=== PATIENT | female | born 1995 | race Caucasian/White ===

== ENCOUNTER → 2017-08-03 | Outpatient (CLI) | payer OTHER ==
[2017-08-03 19:53] LABS: HCG, SERUM QUANTITATIVE 40 MIU/ML
== END ==
LOC: M SMT 14:32
DX: N91.2 Amenorrhea, unspecified (principal)
CPT/HCPCS: 84702

== ENCOUNTER → 2017-09-08 | Outpatient (CLI) | payer OTHER ==
[2017-09-08 13:19] LABS: TESTOSTERONE 47 NG/DL (14-76)
[2017-09-08 13:20] LABS: FOLLICLE STIMULATING HORMONE 8.5 mIU/mL; LUTEINIZING HORMONE 19.8 mIU/mL
[2017-09-08 13:25] LABS: GLUCOSE,RANDOM 95 MG/DL (LESS THAN 200)
[2017-09-08 13:25] LABS: THYROID STIMULATING HORMONE 0.753 uIU/ML (0.358-3.740)
[2017-09-08 14:22] LABS: CONTROL LINE HCG INT CTR LINE PRESENT; HCG, SERUM QUALITATIVE NEGATIVE (NEGATIVE)
[2017-09-12 00:06] LABS: 17 HYDROXY PROGESTERONE 34 ng/dL (.); ANTI THROMBIN 3 ANTIGEN IMMUNO 92 % (72-124); ANTI THROMBIN 3 FUNCT ACTIVITY 96 % (75-135); ANTIPHOSPHATIDYLSERINE IgA 1 APS IgA (0-20); ANTIPHOSPHATIDYLSERINE IgG 3 GPS IgG (0-11); ANTIPHOSPHATIDYLSERINE IgM 30 MPS IgM (0-25); DEHYDROEPIANDROSTERONE SULFATE 217.6 ug/dL (110.0-431.7); INSULIN FREE 65 uU/mL (.); INSULIN TOTAL2 67 uU/mL (.); PROTEIN C FUNCTIONAL ACTIVITY 121 % (73-180); PROTEIN S ANTIGEN FREE 61 % (57-157); PROTEIN S ANTIGEN TOTAL 86 % (60-150)
[2017-09-14 10:06] LABS: DRVV SCREEN 39.2 SEC
[2017-09-14 10:12] LABS: PTT LUPUS TYPE ANTICOAG SCREEN 0.9 (0-1.2)
== END ==
LOC: M LAB 11:34
DX: N92.6 Irregular menstruation, unspecified (principal); N96 Recurrent pregnancy loss
CPT/HCPCS: 83001

== ENCOUNTER → 2017-10-30 | Outpatient (REF) | payer OTHER | LOC: M SFHCLERA 09:37 | DX: J02.9 Acute pharyngitis, unspecified (principal) ==

== ENCOUNTER → 2017-11-17 | Outpatient (CLI) | payer OTHER ==
[2017-11-17 13:15] LABS: BASO % 0.4 % (0.0-1.0); EOS # 0.1 10^3/uL (0.0-0.50); EOS % 0.9 % (0.0-3.0); HEMATOCRIT 36.3 % (36.0-47.0); HEMOGLOBIN 12.6 g/dl (12.0-15.5); IMMATURE GRANULOCYTE % 0.3 % (0-3.0); LYMPH # 2.4 10^3/uL (1.5-6.5); LYMPH % 23.7 % (24.0-44.0); MEAN CORPUSCULAR HEMOGLOBIN 31.5 pg (27.0-33.0); MEAN CORPUSCULAR HGB CONC 34.7 g/dl (32.0-36.5); MEAN CORPUSCULAR VOLUME 90.8 fl (80.0-96.0); MONO # 0.7 10^3/uL (0.0-0.8); MONO % 7.2 % (0.0-5.0); NEUTROPHILS # 6.8 10^3/uL (1.8-7.7); NEUTROPHILS % 67.5 % (36.0-66.0); PLATELET COUNT, AUTOMATED 288 10^3/uL (150-450); RED CELL DISTRIBUTION WIDTH 11.3 % (11.5-14.5)
[2017-11-17 15:01] LABS: CHLAMYDIA DNA AMPLIFICATION NEGATIVE (NEGATIVE); GC DNA AMPLIFICATION NEGATIVE (NEGATIVE)
[2017-11-17 15:22] LABS: HBsAg Prenatal NEGATIVE (NEGATIVE); HIV 1&2 SCREEN CENTAUR NEGATIVE (NEGATIVE); RUBELLA IgG QUALITATIVE IMMUNE (IMMUNE)
[2017-11-17 15:22] LABS: HEPATITIS C VIRUS ABY INDEX < 0.0 INDEX (<0.8)
== END ==
LOC: M SMT 11:37
DX: Z34.81 Encounter for supervision of other normal pregnancy, first trimester (principal); Z36.89 Encounter for other specified antenatal screening; Z3A.10 10 weeks gestation of pregnancy

== ENCOUNTER 2017-12-09 21:01 | Emergency (ER) | payer OTHER ==
[2017-12-09 22:53] LABS: INFLUENZA A AMPLIFICATION NEGATIVE (NEGATIVE); INFLUENZA B AMPLIFICATION NEGATIVE (NEGATIVE)
[2017-12-10] MEDS: NS 1,000 ML IV (00:35)
[2017-12-10 00:47] LABS: BASO % 0.3 % (0.0-1.0); EOS # 0.2 10^3/uL (0.0-0.50); EOS % 1.6 % (0.0-3.0); HEMOGLOBIN 12.3 g/dl (12.0-15.5); IMMATURE GRANULOCYTE % 0.3 % (0-3.0); LYMPH # 3.4 10^3/uL (1.5-6.5); LYMPH % 31.4 % (24.0-44.0); MEAN CORPUSCULAR HEMOGLOBIN 31.5 pg (27.0-33.0); MEAN CORPUSCULAR HGB CONC 35.1 g/dl (32.0-36.5); MEAN CORPUSCULAR VOLUME 89.5 fl (80.0-96.0); MONO # 0.6 10^3/uL (0.0-0.8); MONO % 5.8 % (0.0-5.0); NEUTROPHILS # 6.6 10^3/uL (1.8-7.7); NEUTROPHILS % 60.6 % (36.0-66.0); PLATELET COUNT, AUTOMATED 278 10^3/uL (150-450); RED BLOOD COUNT 3.91 10^6/uL (4.00-5.40); RED CELL DISTRIBUTION WIDTH 11.5 % (11.5-14.5); WHITE BLOOD COUNT 10.9 10^3/uL (4.0-10.0)
[2017-12-10 01:40] LABS: KETONE, URINE AUTO RFX NEGATIVE (NEGATIVE); LEUKOCYTE ESTERASE UR AUTO RFX NEGATIVE (NEGATIVE); NITRITE, URINE AUTO RFX NEGATIVE (NEGATIVE); RBC, URINE AUTO RFX 1 /HPF (0-3); SPECIFIC GRAVITY UR AUTO RFX 1.002 (1.002-1.035); SQUAM EPITHELIAL CELL UR AURFX 0 /HPF (0-6); WBC, URINE AUTO RFX 0 /HPF (0-3)
[2017-12-10 02:04] LABS: ANION GAP 11 MEQ/L (8-16); BLOOD UREA NITROGEN 7 MG/DL (7-18); CALCIUM LEVEL 8.2 MG/DL (8.5-10.1); CARBON DIOXIDE LEVEL 20 MEQ/L (21-32); CHLORIDE LEVEL 109 MEQ/L (98-107); CREATININE FOR GFR 0.53 MG/DL (0.55-1.30); GLOMERULAR FILTRATION RATE > 60.0 (>60); GLUCOSE, FASTING 83 MG/DL (70-100); POTASSIUM SERUM 4.2 MEQ/L (3.5-5.1); SODIUM LEVEL 140 MEQ/L (136-145)
== END 2017-12-10 02:27 | disposition home or self-care (01) ==
LOC: M ED 21:01
DX: O21.9 Vomiting of pregnancy, unspecified (principal); E86.0 Dehydration
CPT/HCPCS: 80048

== ENCOUNTER → 2017-12-14 | Outpatient (CLI) | payer OTHER | LOC: M SMT 11:32 | DX: Z34.81 Encounter for supervision of other normal pregnancy, first trimester (principal); Z36.8A Encounter for antenatal screening for other genetic defects ==

== ENCOUNTER → 2018-01-13 | Outpatient (CLI) | payer OTHER | LOC: M RAD 10:48 | DX: O32.1XX0 Maternal care for breech presentation, not applicable or unspecified (principal); Z3A.18 18 weeks gestation of pregnancy | CPT/HCPCS: 76811 ==

== ENCOUNTER → 2018-02-11 | Outpatient (CLI) | payer OTHER ==
--- NOTE | 2018-02-11 16:48 | REP ---
REASON: anatomy followup. Prior examination obtained 01/13/2018 did not optimally visualize the facial features, right ventricular outflow tract, and spine. Additionally, the left sided choroid plexus cyst was noted. This examination was performed in followup. Multiple ultrasonographic images of the gravid uterus show a single living intrauterine gestation in the footling breech presentation. Doppler interrogation of the heart shows a heart rate of 157 beats per minute. The placenta is posterior and not low lying. The subjective aminotic fluid volume is within normal limits. The cervix measures 4.6 cm in length and it is closed. Evaluation of the maternal adnexal spaces showed no abnormalities. BPD 5.4 cm = 22 weeks 3 days HC 20.5 cm = 22 weeks 4 days AC 17.9 cm = 22 weeks 5 days FL 4.0 cm = 22 weeks 6 days Estimated weight is 531 grams which is at the 56th percentile for a 22 week 3 day gestational age. The aforementioned features which were not seen on the prior exam were well seen today and are normal. Additionally, the choroid plexus cyst seen previously has resolved. IMPRESSION: Single living intrauterine gestation as described above with an estimated gestational age of 22 weeks 2 days via composite criteria and an estimated date of delivery of 06/15/2018 by today's exam. No anomalies were detected. Electronically Signed by John Staples DO 02/11/2018 04:58 P
== END ==
LOC: M SMT 11:03
PROVIDERS: ATTEND Advanced Practice Midwife
DX: Z34.82 Encounter for supervision of other normal pregnancy, second trimester (principal); Z3A.22 22 weeks gestation of pregnancy

== ENCOUNTER → 2018-02-24 | Outpatient (CLI) | payer OTHER ==
--- NOTE | 2018-02-25 05:39 | REP ---
Clinical: Left flank pain. Technique: Real time garcia scale ultrasound examination using curved array transducer. Findings: Bilateral kidneys are normal in contour, size, echogenicity, and reniform shape without hydronephrosis, nephrolithiasis, cystic or renal mass lesion. No perinephric fluid collection. Right kidney measures 11.5 x 6.2 x 4.4 cm. Left kidney measures 12.1 x 6.6 x 5.2 cm. Bladder is empty. Fetus in breech presentation noted (FHR 150 beats per minute). Impression: Normal bilateral kidneys. No hydronephrosis or obvious nephrolithiasis. Electronically Signed by Claudio Martinez MD 02/25/2018 05:30 A
== END ==
LOC: M RAD 10:13
PROVIDERS: ATTEND Advanced Practice Midwife
DX: M54.5 Low back pain (principal)

== ENCOUNTER → 2018-03-02 | Outpatient (REF) | payer OTHER ==
[~2018-03-02] MED LIST: OMEP20CA3 PO; PRENTAB9 PO; PROZ10CA7 PO
== END ==
LOC: M LAB REF 13:30
PROVIDERS: ATTEND Advanced Practice Midwife
DX: Z34.82 Encounter for supervision of other normal pregnancy, second trimester (principal)

== ENCOUNTER → 2018-03-10 | Outpatient (CLI) | payer OTHER ==
[2018-03-10 13:06] LABS: HEMOGLOBIN 11.8 g/dl (12.0-15.5); MEAN CORPUSCULAR HEMOGLOBIN 31.4 pg (27.0-33.0); MEAN CORPUSCULAR HGB CONC 33.7 g/dl (32.0-36.5); MEAN CORPUSCULAR VOLUME 93.1 fl (80.0-96.0); PLATELET COUNT, AUTOMATED 275 10^3/uL (150-450); RED BLOOD COUNT 3.76 10^6/uL (4.00-5.40); WHITE BLOOD COUNT 9.9 10^3/uL (4.0-10.0)
== END ==
LOC: M SMT 10:31
PROVIDERS: ATTEND Obstetrics & Gynecology
DX: Z34.82 Encounter for supervision of other normal pregnancy, second trimester (principal)

== ENCOUNTER 2018-04-07 13:29 | Outpatient (CLI) | payer OTHER ==
[~2018-04-07] VITALS: Ht 170.2 cm; Wt 107.7 kg
[2018-04-07 13:46] VITALS: BP 126/63
[2018-04-07] MEDS ORDERED: OMEP20CA3 PO (13:52)
[2018-04-07] MEDS ORDERED: PRENTAB9 PO (13:52)
[2018-04-07] MEDS ORDERED: PROZ10CA7 PO (13:52)
[2018-04-07] MEDS ORDERED: LR 1,000 ML IV SCH (14:03)
[2018-04-07] MEDS ORDERED: LACTATED RINGER'S 1000 ML IV STA (14:03)
[2018-04-07 14:28] LABS: HEMATOCRIT 31.9 % (36.0-47.0); HEMOGLOBIN 11.1 g/dl (12.0-15.5); MEAN CORPUSCULAR HEMOGLOBIN 30.7 pg (27.0-33.0); MEAN CORPUSCULAR HGB CONC 34.8 g/dl (32.0-36.5); MEAN CORPUSCULAR VOLUME 88.4 fl (80.0-96.0); PLATELET COUNT, AUTOMATED 254 10^3/uL (150-450); RED BLOOD COUNT 3.61 10^6/uL (4.00-5.40); WHITE BLOOD COUNT 9.8 10^3/uL (4.0-10.0)
[2018-04-07 15:04] VITALS: BP 116/63
[2018-04-07 15:04] LABS: ALBUMIN 2.6 GM/DL (3.2-5.2); ALT/SGPT 14 U/L (12-78); BILIRUBIN,TOTAL 0.3 MG/DL (0.2-1.0); BLOOD UREA NITROGEN 7 MG/DL (7-18); CALCIUM LEVEL 8.4 MG/DL (8.5-10.1); CARBON DIOXIDE LEVEL 22 MEQ/L (21-32); CHLORIDE LEVEL 108 MEQ/L (98-107); CREATININE FOR GFR 0.51 MG/DL (0.55-1.30); GLOMERULAR FILTRATION RATE > 60.0 (>60); GLUCOSE, FASTING 93 MG/DL (70-100); POTASSIUM SERUM 3.6 MEQ/L (3.5-5.1); SODIUM LEVEL 138 MEQ/L (136-145); TOTAL PROTEIN 6.4 GM/DL (6.4-8.2)
--- NOTE | 2018-04-07 15:11 | REP ---
Clinical: 30 weeks with right upper quadrant pain. Technique: Cochran scale ultrasound using curved array transducer. Findings: The liver and pancreas are normal in contour, size, and pancreatic echogenicity without focal hepatic or pancreatic lesions identified. Mild fatty infiltration to the liver cannot be excluded. The gallbladder is normal without gallstones, wall thickening or pericholecystic fluid. No biliary ductal dilatation is appreciated, and the common bile duct measures 3.1 mm diameter. The right kidney measures 11.4 x 5.0 x 4.8 cm and demonstrates mild hydronephrosis which may be induced. Impression: 1. Mild right hydronephrosis likely secondary to . 2. Mild fatty infiltration to the liver cannot be excluded. Electronically Signed by Claudio Martinez MD 04/07/2018 03:03 P
== END 2018-04-07 16:41 | disposition home or self-care (01) ==
LOC: M LDO 13:29
PROVIDERS: ATTEND Specialist
DX: O47.03 False labor before 37 completed weeks of gestation, third trimester (principal); Z3A.30 30 weeks gestation of pregnancy; O26.893 Other specified pregnancy related conditions, third trimester
CPT/HCPCS: 59025; 76705; 80053; 85027; G0378; G0463

== ENCOUNTER → 2018-04-27 | Outpatient (REF) | payer OTHER | LOC: M LAB REF 15:47 | PROVIDERS: ATTEND Advanced Practice Midwife | DX: R19.7 Diarrhea, unspecified (principal) ==

== ENCOUNTER → 2018-05-18 | Outpatient (REF) | payer OTHER | LOC: M LAB REF 17:18 | PROVIDERS: ATTEND Obstetrics & Gynecology | DX: Z34.83 Encounter for supervision of other normal pregnancy, third trimester (principal) ==

== ENCOUNTER 2018-06-07 16:28 | Inpatient (IN) | payer OTHER ==
[~2018-06-07] VITALS: Ht 170.2 cm; Wt 112.0 kg
[2018-06-07 16:51] VITALS: BP 167/93
[2018-06-07] MEDS ORDERED: LR 1,000 ML IV SCH (17:40)
[2018-06-07] MEDS ORDERED: LACTATED RINGER'S 1000 ML IV STA (17:40)
[2018-06-07 18:07] VITALS: BP 123/67
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
[2018-06-07 18:41] LABS: HEMATOCRIT 32.2 % (36.0-47.0); HEMOGLOBIN 10.9 g/dl (12.0-15.5); MEAN CORPUSCULAR HEMOGLOBIN 29.6 pg (27.0-33.0); MEAN CORPUSCULAR HGB CONC 33.9 g/dl (32.0-36.5); MEAN CORPUSCULAR VOLUME 87.5 fl (80.0-96.0); PLATELET COUNT, AUTOMATED 264 10^3/uL (150-450); RED BLOOD COUNT 3.68 10^6/uL (4.00-5.40); WHITE BLOOD COUNT 11.6 10^3/uL (4.0-10.0)
[2018-06-07] MEDS ORDERED: EVEN500C3 PO (19:19)
[2018-06-07] MEDS ORDERED: ZOLO25TA PO (19:21)
[2018-06-07] MEDS: miSOPROStol 50 MCG 1/2 TAB (S0191) SL SCH ×2 (19:25→23:19)
[2018-06-07 21:54] VITALS: BP 110/60
[2018-06-08] VITALS (36 sets, daily range): BP systolic 97–159; BP diastolic 55–89
[2018-06-08] MEDS ORDERED: PROMETHAZINE INJ 25 MG/ML VIAL (J2550) IV ONE (01:45)
[2018-06-08] MEDS ORDERED: BUTORPHANOL 2 MG/ML INJ (J0595) IV ONE (01:45)
[2018-06-08] MEDS: miSOPROStol 50 MCG 1/2 TAB (S0191) SL SCH (03:32)
[2018-06-08] MEDS ORDERED: SERTRALINE HCL 25 MG TABLET PO SCH (09:00)
[2018-06-08] MEDS ORDERED: LR 1,000 ML IV SCH ×3 (09:45→18:30)
[2018-06-08] MEDS ORDERED: OXYTOCIN DRIP 30 UNITS in APPROPRIATE DILUENT 1 EA IV SCH ×2 (09:45→18:30)
[2018-06-08] MEDS ORDERED: LACTATED RINGER'S 1000 ML IV ONE (14:00)
[2018-06-08] MEDS ORDERED: fentaNYL 100 MCG/2 ML INJECTION (J3010) As Ordered ONE ×3 (14:35→19:42)
[2018-06-08] MEDS ORDERED: FENTANYL 2MCG/ML ROPIVACAINE 0.2% IN 0.9% NACL 100ML IVBAG As Ordered ONE (14:36)
[2018-06-08] MEDS ORDERED: LACTATED RINGER'S 1000 ML IV PRN (15:30)
[2018-06-08] MEDS ORDERED: EPIDURAL/PCA KEYS XX PRN (15:30)
[2018-06-08] MEDS ORDERED: REFRIGERATOR IV KEYS XX PRN (15:30)
[2018-06-08] MEDS ORDERED: FENTANYL/ROPIVACAINE/NACL BAG 100 ML EPIDURAL SCH (15:30)
[2018-06-08] MEDS ORDERED: EPIDURAL COMMENT XX SCH (15:30)
[2018-06-08] MEDS ORDERED: ONDANSETRON 4MG/2ML VIAL (J2405) IV PRN ×4 (15:30→19:29)
[2018-06-08] MEDS ORDERED: diphenhydrAMINE INJ 50MG/ML VIAL (J1200) IV PRN ×2 (15:30→19:29)
[2018-06-08] MEDS ORDERED: ePHEDrine SULFATE 25 MG/5 ML(5MG/ML) SYRINGE IV PRN (15:30)
[2018-06-08] MEDS ORDERED: NALOXONE INJ 0.4 MG/1 ML VIAL (J2310) IV PRN ×3 (15:30→19:29)
[2018-06-08] MEDS ORDERED: BICITRA 30ML SOLN UDC As Ordered ONE (16:15)
[2018-06-08] MEDS ORDERED: ceFAZolin 2 GM/D5W 50 ML IV BAG (J0690 PER 500MG) As Ordered ONE (16:16)
[2018-06-08] MEDS ORDERED: BICITRA 30ML SOLN UDC PO ONE (16:30)
[2018-06-08] MEDS ORDERED: LIDOCAINE 2% W/EPIN INJ 20ML **PRES FREE As Ordered ONE (16:45)
[2018-06-08] MEDS ORDERED: SODIUM BICARBONATE 8.4% INJ 50 ML SYRINGE As Ordered ONE (16:48)
[2018-06-08] MEDS ORDERED: OXYTOCIN INJ 10 UNITS/ML VIAL (J2590) As Ordered ONE (17:29)
[2018-06-08] MEDS ORDERED: MORPHINE PRES-FREE INJ 10 MG/10 ML VIAL (J2274) As Ordered ONE (17:31)
[2018-06-08] MEDS ORDERED: KETOROLAC 60 MG/2 ML VIAL (J1885) As Ordered ONE (17:34)
[2018-06-08] MEDS ORDERED: ONDANSETRON 4MG/2ML VIAL (J2405) As Ordered ONE ×2 (17:34→18:27)
[2018-06-08 17:36] LABS: CORD GAS ABE V -1.5; CORD GAS HCO3 V 24.3 MEQ/L; CORD GAS O2 SAT V 82.7 %; CORD GAS PH V 7.351 UNITS; CORD GAS PO2 V 35.4 mmHg; CORD GAS SBC V 22.8 MEQ/L; CORD GAS TCO2 V 25.7 MEQ/L
[2018-06-08 17:38] LABS: CORD GAS ABE A -1.2; CORD GAS O2 SAT A 42.8 %; CORD GAS PCO2 A 53.1 mmHg; CORD GAS PH A 7.308 UNITS; CORD GAS PO2 A 16.9 mmHg; CORD GAS SBC A 22.1 MEQ/L; CORD GAS TCO2 A 27.6 MEQ/L
[2018-06-08] MEDS ORDERED: OXYTOCIN 30 UNITS IN 0.9% NaCl 500ML IV BAG (J2590) As Ordered ONE (17:58)
[2018-06-08] MEDS ORDERED: RHOGAM 300 MCG (1500 IU) INJ (J2790) IM SCH (18:15)
[2018-06-08] MEDS ORDERED: MEASLES,MUMPS,RUBELLA VACCINE INJ (MMR-II) (90707) SC SCH (18:15)
[2018-06-08] MEDS ORDERED: MOM 30ML SUSPENSION UDC PO PRN (18:15)
[2018-06-08] MEDS ORDERED: PERCOCET 5MG/325MG TAB PO PRN (18:30)
[2018-06-08] MEDS ORDERED: METOCLOPRAMIDE INJ 10MG/2ML VIAL (J2765) IV PRN ×2 (18:30→19:29)
[2018-06-08] MEDS: fentaNYL 100 MCG/2 ML INJECTION (J3010) IV PRN ×3 (19:02→19:45)
--- NOTE | 2018-06-08 19:07 | RO ---
DATE OF PROCEDURE: 06/08/2018 PREOPERATIVE DIAGNOSIS: Inability to augment labor removed from delivery. POSTOPERATIVE DIAGNOSIS: Inability to augment labor removed from delivery. PROCEDURE PERFORMED: Primary lower transverse section. SURGEON: Dr. Rain Willis. RN DOCUMENT IMPROVEMENT SPECIALIST: Thao Silver CNM ANESTHESIA: Epidural ESTIMATED BLOOD LOSS: 500 mL. IV FLUIDS: 650 mL lactated Ringer's solution. Urine output was 125 mL. SPECIMENS: Cord gases 7.30, 7.35. PREOPERATIVE ANTIBIOTICS: 2 grams of Ancef. OPERATIVE FINDINGS: Live born female , 8 and 9. Weight was 3670 grams or 8 pounds 1 ounce. DESCRIPTION OF OPERATION: After informed consent was obtained and written consent was reviewed the patient with the operating room where she was placed in supine position with left lateral tilt. She previously had a Melgar catheter and was placed to gravity. She was then prepped and draped in the normal sterile fashion. A time-out in the operating room was performed identifying the patient, procedure be performed as well as drug allergies. Anesthesia was tested and was deemed to be adequate. A Pfannenstiel skin incision was then made and this was carried down to the underlying rectus fascia. The fascia was ordered and this incision was extended bilaterally. The fascia was then dissected off the underlying rectus muscles both superiorly and inferiorly. The rectus muscles were in midline. The peritoneum was then entered sharply. The vesicouterine peritoneum was then excised. The Mobius retractor was then inserted and curvilinear incision was then made lower uterine segment. This incision was extended. Amniotomy was productive of clear fluid head was brought to level incision atraumatically followed by delivery shoulders and corpus. Cord was clamped times two and was cut. Infant had taken away to the warmer with a good cry. Cord gas was obtained. Placenta was then drained delivered grossly intact and the uterus was then cleared of all clots and debris. Uterine incision was then closed in two-layer 0 Vicryl first in a running locking fashion followed by second layer for imbrication in a running nonlocking fashion. The uterine incision was inspected noted be hemostatic. Next, anterior peritoneum was reapproximated 3-0 Vicryl. Rectus muscles were reapproximated with 3-0 Vicryl. The fascia was then closed 0 Vicryl in a running nonlocking fashion. Subcutaneous tissue was then irrigated and suctioned. Subcutaneous tissue was reapproximated with 3-0 Vicryl. Several subdermal stitches were placed 3-0 Vicryl and the skin was closed with 4-0 Monocryl in a subcuticular fashion. The incision was then cleaned and dry and was dressed. The patient was taken to recovery in stable condition. Counts correct. The couple have decided to name their daughter More. Thao Silver my assistant front end manager played an essential role during the operation. She assisted with tissue identification and retraction, delivery of the as well as wound closure. WAYNE
[2018-06-08] MEDS ORDERED: PERCOCET 5MG/325MG TAB As Ordered ONE (19:25)
[2018-06-08] MEDS ORDERED: NALBUPHINE HCL 10 MG/ML AMP (J2300) IV PRN (19:29)
[2018-06-08] MEDS: PERCOCET 5MG/325MG TAB PO PRN (19:29)
[2018-06-08] MEDS: DOCUSATE SODIUM 100 MG CAP PO SCH (21:01)
[2018-06-08] MEDS: KETOROLAC 30 MG/ML VIAL (J1885) IV SCH (23:44)
[2018-06-09] VITALS (8 sets, daily range): BP systolic 93–119; BP diastolic 50–66
[2018-06-09] MEDS: PERCOCET 5MG/325MG TAB PO PRN ×5 (00:49→21:27)
[2018-06-09] MEDS: KETOROLAC 30 MG/ML VIAL (J1885) IV SCH ×2 (05:34→12:06)
[2018-06-09 07:17] LABS: HEMATOCRIT 28.2 % (36.0-47.0); HEMOGLOBIN 9.3 g/dl (12.0-15.5); MEAN CORPUSCULAR HEMOGLOBIN 29.7 pg (27.0-33.0); MEAN CORPUSCULAR VOLUME 90.1 fl (80.0-96.0); PLATELET COUNT, AUTOMATED 190 10^3/uL (150-450); RED BLOOD COUNT 3.13 10^6/uL (4.00-5.40); WHITE BLOOD COUNT 11.7 10^3/uL (4.0-10.0)
[2018-06-09] MEDS: DOCUSATE SODIUM 100 MG CAP PO SCH ×2 (09:04→20:28)
[2018-06-09] MEDS: PRENATAL VITAMINS CHEWABLE TABLET PO SCH (09:04)
[2018-06-09] MEDS: SIMETHICONE 80 MG CHEW TAB PO PRN ×2 (09:12→17:19)
[2018-06-09] MEDS: SERTRALINE HCL 25 MG TABLET PO SCH (15:04)
[2018-06-09] MEDS: IBUPROFEN 800 MG TAB PO SCH (20:29)
[2018-06-10 01:52] VITALS: BP 128/61
[2018-06-10] MEDS: IBUPROFEN 800 MG TAB PO SCH ×2 (03:53→12:24)
[2018-06-10] MEDS ORDERED: IBUP1TAB7 PO (05:39)
[2018-06-10] MEDS ORDERED: OXYC1TAB23 PO ×2 (05:40→15:17)
[2018-06-10 05:48] VITALS: BP 111/61
--- NOTE | 2018-06-10 06:34 | NUR ---
POD#1 S: Doing well w/o complaints. Pain moderately controlled. Tolerating reg diet, + ambulation O: vss, AF Gen: well appearing abd: soft, appropriately tender incision: dressed ext: neg calf tenderness A/P: POD # 1 s/p 1c/s with - recovering in stable condition -cont routine postoperative care -disposition tomorrow, or later today Rain Willis MD
[2018-06-10] MEDS: PERCOCET 5MG/325MG TAB PO PRN ×2 (10:14→15:46)
[2018-06-10] MEDS: DOCUSATE SODIUM 100 MG CAP PO SCH (10:36)
[2018-06-10] MEDS: SERTRALINE HCL 25 MG TABLET PO SCH (10:36)
[2018-06-10] MEDS: PRENATAL VITAMINS CHEWABLE TABLET PO SCH (10:36)
--- NOTE | 2018-06-10 13:29 | DS.PDOC ---
Discharge Summary General Date of Admission Jun 07, 2018 at 16:28 Date of Discharge 06/10/18 Discharge Summary PROCEDURES PERFORMED DURING STAY: Primary section. ADMITTING DIAGNOSES: 1. Elective induction of labor. DISCHARGE DIAGNOSES: 1. Primary , inability to augment labor. COMPLICATIONS/CHIEF COMPLAINT: Induction. HISTORY OF PRESENT ILLNESS: 22yo G1now P1 MARIO 06/14/18. Admitted for elective nonm edical induction of labor 06/07/18. Primary performed by Dr Willis 06/08/18 for inability to augment labor due to intolerance. HOSPITAL COURSE: Appropriate recovery course. Adequate pain management with oral meds, tolerating regular diet, out of bed independently, voiding and passing flatus. DISCHARGE MEDICATIONS: Please see below. ALLERGIES: Please see below. PHYSICAL EXAMINATION ON DISCHARGE: VITAL SIGNS: Please see below. GENERAL: No apparent distress, out of bed independently HEENT: WNL NECK: Supple CARDIOVASCULAR EXAMINATION: HRR, normotensive RESPIRATORY EXAMINATION: Clear and unlabored ABDOMINAL EXAMINATION: Dressing intact with old drainage. Appropriately tender EXTREMITIES: Equal strength and motion SKIN: Intact NEUROLOGICAL EXAMINATION: Grossly intact PSYCHIATRIC EXAMINATION: Appropriate LABORATORY DATA: Please see below. PROGNOSIS: Good ACTIVITY: As tolerated DIET: Regular, encourage fluids DISCHARGE PLAN: Home today. Remove dressing Wednesday. MOM prior to discharge DISPOSITION: Home . DISCHARGE INSTRUCTIONS: 1. Pelvic rest. Reviewed oral medication use. Routine precautions reviewed. RTO 2wks, 6wks DISCHARGE CONDITION: Stable. Vital Signs/I&Os Vital Signs Date Time Temp Pulse Resp B/P (MAP) Pulse Ox O2 Delivery O2 Flow Rate FiO2 06/10/18 11:37 18 06/10/18 05:48 97.7 68 111/61 (78) 06/10/18 01:52 100 I&O- Last 24 Hours up to 6 AM 06/10/18 06:00 Output Total 300 ml Balance -300 ml Discharge Medications Scheduled Evening Archer Oil (Evening Archer Oil) 500 Mg Capsule, 1 CAP PO DAILY, (Reported) No.137/Iron/Folic Acd ( Vitamin Tablet) 1 Tab Tab, 1 TAB PO DAILY, (Reported) Sertraline Hcl (Zoloft) 25 Mg Tablet, 25 MG PO DAILY, (Reported) Scheduled PRN Ibuprofen (Ibuprofen) 800 Mg Tablet, 800 MG PO Q8HP PRN for PAIN Oxycodone HCl/Acetaminophen (Oxycodone-Acetaminophen 5-325) 1 Each Tablet, 1-2 TAB PO Q6HP PRN for PAIN Allergies Coded Allergies: No Known Allergies (Unverified , 12/09/17) Marisa Alvarez CNM June 10, 2018 13:29
[2018-06-10] MEDS ORDERED: MOM 30ML SUSPENSION UDC PO ONE (13:45)
== END 2018-06-10 16:35 | disposition home or self-care (01) | DRG 773 ==
LOC: M LDI 16:28 → M OBS 06-08 20:15
PROVIDERS: ADMIT Obstetrics & Gynecology; ATTEND Obstetrics & Gynecology
PROC: 3E033VJ Introduction of Other Hormone into Peripheral Vein, Percutaneous Approach (ICD-10-PCS; 2018-06-07)
PROC: 10D00Z1 Extraction of Products of Conception, Low, Open Approach (ICD-10-PCS; principal; 2018-06-08 17:16)
DX: O61.0 Failed medical induction of labor (principal); Z37.0 Single live birth; Z3A.39 39 weeks gestation of pregnancy

== ENCOUNTER 2018-06-27 12:06 | Emergency (ER) | payer OTHER ==
[~2018-06-27] VITALS: Ht 170.2 cm; Wt 100.0 kg
[~2018-06-27 12:06] MED LIST changes: +EVEN500C3 PO; +IBUP1TAB7 PO; +OXYC1TAB23 PO; +ZOLO25TA PO
[2018-06-27 14:40] LABS: INFLUENZA A AMPLIFICATION NEGATIVE (NEGATIVE); INFLUENZA B AMPLIFICATION NEGATIVE (NEGATIVE)
[2018-06-27] MEDS ORDERED: ACETAMINOPHEN 325 MG TAB PO ONE (17:00)
[2018-06-27 17:30] VITALS: BP 111/68
[2018-06-27] MEDS ORDERED: KEFL500C17 PO (17:32)
[2018-06-27] MEDS ORDERED: CEPHALEXIN 500 MG CAP PO ONE (17:45)
== END 2018-06-27 17:52 | disposition home or self-care (01) ==
LOC: M ED 12:06
DX: J06.9 Acute upper respiratory infection, unspecified (principal); T81.40XA Infection following a procedure, unspecified, initial encounter; Y92.9 Unspecified place or not applicable; Y93.9 Activity, unspecified; Z72.0 Tobacco use; Z79.899 Other long term (current) drug therapy